=== PATIENT | female | born 1975 | race Caucasian/White ===

== ENCOUNTER 2022-11-17 20:59 | Emergency (ER) | payer BC, OTHER ==
[2022-11-17] MEDS ORDERED: Acetaminophen/HYDROcodone 325-5 MG Tab PO ONE (21:00)
[2022-11-17] MEDS ORDERED: Sodium Chloride 0.9% 10 ML Syringe FLUSH PRN (21:42)
[2022-11-17] MEDS ORDERED: Ondansetron 4 MG/2 ML SDV IVPUSH ONE (21:54)
[2022-11-17 21:57] LABS: ESTIMATED GFR 93 mL/min (>60)
[2022-11-17] MEDS ORDERED: Sodium Chloride 0.9% 1,000 ML IV SCH (22:00)
[2022-11-17] MEDS ORDERED: Ketorolac 30 MG/ML SDV IVPUSH ONE (22:28)
[2022-11-17] MEDS ORDERED: Iopamidol 755 Mg/ML 100 ML Bottle IV ONE (22:30)
[2022-11-18 01:06] VITALS: BP 121/71; PULSE 79
== END 2022-11-17 23:34 | disposition home or self-care (01) ==
LOC: FB.ED 20:59
DX: N13.2 Hydronephrosis with renal and ureteral calculous obstruction (principal)
CPT/HCPCS: 36415; 74177; 80053; 81001; 82150; 83690; 85025; 96361; 96374; 96375; 99283; 99284-25; A9270-GY; J1885; J2405; J3490; J7030; Q9967